=== PATIENT | female | born 1980 | race Caucasian/White ===

== ENCOUNTER 2017-12-25 12:27 | Emergency (ER) | payer MEDICAID ==
[2017-12-25] MEDS: ACETAMINOPHEN 500 MG TAB PO (13:15)
[2017-12-25] MEDS: AMOXICILLIN 500 MG CAP PO (13:15)
[2017-12-25] MEDS: IBUPROFEN 800 MG TAB PO (13:15)
== END 2017-12-25 13:15 | disposition home or self-care (01) ==
LOC: FTE 12:27
DX: J02.0 Streptococcal pharyngitis (principal)
CPT/HCPCS: 99283; Z7502